=== PATIENT | female | born 1955 | race Caucasian/White ===

== ENCOUNTER → 2019-04-09 10:07 | Outpatient (CLI) | payer OTHER, SELFPAY ==
--- NOTE | 2019-04-09 | DI.MG.S_ITS ---
BILATERAL DIGITAL SCREENING MAMMOGRAM 3D/2D WITH CAD: 04/09/2019 CLINICAL: Routine screening. Comparison is made to exams dated: 08/27/2013 mammogram - [facility], 04/20/2009 mammogram, and 04/09/2009 mammogram - [facility]. There are scattered fibroglandular elements in both breasts. Current study was also evaluated with a Computer Aided Detection (CAD) system. No significant masses, calcifications, or other findings are seen in either breast. There has been no significant interval change. IMPRESSION: NEGATIVE There is no mammographic evidence of malignancy. A 1 year screening mammogram is recommended. This exam was interpreted at Station ID: [id number]. NOTE: For mammograms, a report in lay terms will be sent to the patient. Approximately 15% of breast malignancies will not be visualized mammographically. In the management of a palpable breast mass, a negative mammogram must not discourage biopsy of a clinically suspicious lesion. Electronically Signed By: Mary alvarez/taj:04/09/2019 10:59:45 copy to: JAVIER AGUERO letter sent: Normal Exam ACR BI-RADS Category 1: Negative [id number]
== END ==
PROVIDERS: PCP Registered Nurse; Visit Provider Nurse Practitioner Women's Health
DX: Z12.31 Encounter for screening mammogram for malignant neoplasm of breast (principal); Z13.820 Encounter for screening for osteoporosis; M85.88 Other specified disorders of bone density and structure, other site; Z78.0 Asymptomatic menopausal state
CPT/HCPCS: 77063; 77067; 77080

== ENCOUNTER 2019-05-03 11:13 | Outpatient (RCR) | payer OTHER, SELFPAY ==
--- NOTE | 2019-05-03 17:35 | PT.OIE ---
Current Diagnoses Muscle weakness (generalized) (05/03/19) Female genital prolapse, unspecified (05/03/19) Other reduced mobility (05/03/19) Provider Visit Care Team Role Provider Type JULIO Chen Primary Care Provider Non-Staff Specialty: Medical Address: [address] [place] [address], [id number] Email: JULIO Burleson Attending Provider Non-Staff Specialty: Medical Address: [address] [place] [address], [id number] Email: Physical Therapy Initial Evaluation PT-OP-A Visit Information Start: 04/17/19 16:26 Freq: Status: Active Protocol: Document 05/03/19 11:24 LRN (Rec: 05/03/19 12:24 LRN [id number]) Out-Patient Physical Therapy Visit Information Visit Information Visit Type Initial Evaluation Visit Start Time 11:24 Visit Stop Time 12:23 Total Visit Minutes 59 Visit Number 1 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 Bowel leakage with urgency. History of Current Condition Bulge of bladder with frequent urination. Don't have urgency to go. Thinks she has leakage with walking and biking. Drying up so sex is painful. Don't think leaks with sex. Has had PT to tighten up 6-7 yrs ago and got better, but now gotten worse. Had bulging discs in the back,got better but the leg muscles remained tight in gluteals, and TFL. She had extreme sensitivity in IT Band and Gluteals. TrP release DOESN'T WORK for her because it causes more pain. Prior Treatments and Tests Back injury 3 yrs ago with a disc bulge on both sides in lumbar spine (~L5-S1). 8-9 yrs ago had PT for pelvic floor to improve sensitivity to sex and improve Kegel contraction correctly, in [place]. Currently on cream for dry tissues. Fixed abdominal hernia. Developmental History Developmental History Urinary leakage with activity, not sure if she is sweating or leaking. Treatment Goals Patient/Caregiver Goals Run a mile. Prior Functional Status Baseline Function- ADL's Independent Baseline Function- Mobility Independent Current Functional Impairments (Reported) Functional Limitations- Mobility/Gait Can't run. Stiff and can't move hips, locked up. PT-OP-C Subjective Start: 04/17/19 16:26 Freq: Status: Active Protocol: Document 05/03/19 11:24 LRN (Rec: 05/07/19 17:27 LRN [id number]) Patient Questionnaires Pelvic Pain and Urgency/Frequency Patient Symptom Scale Pelvic Pain Score 13 PT-OP-I Pelvic Floor Start: 04/17/19 16:26 Freq: Status: Active Protocol: Document 05/03/19 11:24 LRN (Rec: 05/07/19 17:26 LRN [id number]) Pelvic Floor Assessment Urine Pelvic Floor Surgery Yes Urinary Symptoms Prolapse Falling Out Feeling/Heavy Other Urinary Symptoms Feeling of falling out with coughing Vaginal Dryness Leakage Size Small Leakage Cause Exercise Urge Nocturia 0 Bowel Bowel Surgery No Bowel Symptoms Fecal Leakage Other Bowel Symptoms Unable to control flatulence. Pelvic Clock Pelvic Clock 6-9 Atrophy Pelvic Clock 9-12 Atrophy Prolapse Cystocele Grade 2 Rectocele Grade 2 Prolapse Comments Uterus dropped Perineal Descent Resting Present Bearing Present Contraction Ability Manual Muscle Testing Left 2 Manual Muscle Testing Right 0 Manual Muscle Testing Anterior 0 Manual Muscle Testing Posterior 2 Muscle Endurance (Seconds) 2 Number of Quick Contractions In 10 5 Seconds Comments Pelvic Floor Comments PF contraction is sluggish PT-OP-J Posture/Palpation/Skin Start: 04/17/19 16:26 Freq: Status: Active Protocol: Document 05/03/19 11:24 LRN (Rec: 05/07/19 17:26 LRN [id number]) Posture Evaluation Comments Posture Comments Standing: R SIJ is deep compared to the L, Bunions with toes adducted, otherwise pt posture is good, no obvious postural deviations. Palpation Assessment Location R SIJ Palpation Location R SIJ and Gluteals Palpation Findings Tenderness PT-OP-K Range of Motion Start: 04/17/19 16:26 Freq: Status: Active Protocol: Document 05/03/19 11:24 LRN (Rec: 05/07/19 17:26 LRN [id number]) Lumbar Spine Range of Motion Lumbar Spine Active Degrees Testing Position Standing Flexion 98 Extension 12 Lateral Flexion Left 5 Lateral Flexion Right 8 Hip Goniometric Range of Motion Hip Right Passive Testing Position Supine Internal Rotation 30 External Rotation 55 Left Passive Testing Position Supine Internal Rotation 30 External Rotation 55 PT-OP-M Strength Start: 04/17/19 16:26 Freq: Status: Active Protocol: Document 05/03/19 11:24 LRN (Rec: 05/07/19 17:26 LRN [id number]) Hip Strength Hip Manual Muscle Testing Right Flexion (L2) 3 Fair Extension (S1) 3 Fair Abduction 5 Normal Adduction 3 Fair External Rotation 5 Normal Internal Rotation 3 Fair Left Flexion (L2) 3 Fair Extension (S1) 3 Fair Abduction 5 Normal Adduction 3 Fair External Rotation 5 Normal Internal Rotation 3 Fair PT-OP-Q Treatments Start: 04/17/19 16:26 Freq: Status: Active Protocol: Document 05/03/19 11:24 LRN (Rec: 05/07/19 17:26 LRN [id number]) Self-Care/Home Management Treatment Education Patient Education Home Exercise Program Other Education Educated pt in completion of Bladder Diary for next 7 days. Discussed Anatomy of Pelvic Floor. Activities Self-Care/Home Management Activities Issued & reviewed ex handout for Kegel ex's: Quick Flicks and Long Holds. PT-OP-T Assessment and Plan Start: 04/17/19 16:26 Freq: Status: Active Protocol: Document 05/03/19 11:24 LRN (Rec: 05/07/19 17:26 LRN [id number]) Physical Therapy Assessment Rehab Potential Rehabilitation Potential Good Evaluation Complexity Number of Personal Factors/Comorbidities 1-2 Number of Body Systems Impaired 3 Clinical Presentation at Evaluation Evolving Impairments Impairments ROM Strength Other Impairments Urinary and Fecal leakage with activity. Goals Three Impairment Pt not able to run 1 mile due to feeling of falling out. Steel Loader Goal (LTG) Pt will be educated in proper breathing techniques to minimize bladder prolapse, and will be able to run a short distance with controlling the feeling of falling out. LTG Duration 07/30/19 Two Impairment PF weakness causing urinary leakage Short Term Goal (STG) Pt will be educated in proper Kegel contraction and urge deference technique. STG Duration 06/25/19 Steel Loader Goal (LTG) Pt will improve PF strength to at least 3/5 of the Pelvic Floor Clock LTG Duration 07/30/19 One Impairment Lacks appropriate self care HEP Steel Loader Goal (LTG) Pt will be independent with a self care HEP LTG Duration 07/30/19 Assessment Summary Assessment Pt presents with grade 2 cystocele and rectocele and palpable uterine drop due to PF weakness, decreased hip and core stability. The pt's history of back pain probably hinders her ability to maintain continence due to back and R hip pain. The pt will benefit from skilled physical therapy to improve pelvic floor health and improve her level of both urinary and fecal continence. Physical Therapy Plan Frequency and Duration Frequency of Treatment 1x/Week Plan of Care Start Date 05/03/19 Plan of Care End Date 07/30/19 Therapeutic Interventions Therapeutic Interventions Home Exercise Program Manual Therapy Neuromuscular Re-education Patient/Caregiver Education Self-Care/Home Management Soft Tissue Mobilization Therapeutic Exercises Modalities Electric Stimulation Other Therapeutic Interventions EMG Biofeedback with vaginal sensor. Next Visit Focus/Plan Next Note Type Treatment Note Next Visit Plan Review Bladder Diary for daily training recommendations, assess PF strength per EMG Biofeedback, initiate deep breathing exercise and discuss deep breathing with exercise, start Roll in/out strengthening program and core stabilization. Check hip mobility and issue HEP for areas of tightness.
--- NOTE | 2019-05-03 17:35 | PT.OPPOC ---
Current Diagnoses Muscle weakness (generalized) (05/03/19) Female genital prolapse, unspecified (05/03/19) Other reduced mobility (05/03/19) Provider Visit Care Team Role Provider Type JULIO Chen Primary Care Provider Non-Staff Specialty: Medical Address: [address] [place] [address], [address] Email: JULIO Burleson Attending Provider Non-Staff Specialty: Medical Address: [address] [place] [address], [address] Email: Plan Of Care PT-OP-T Assessment and Plan Start: 04/17/19 16:26 Freq: Status: Active Protocol: Document 05/03/19 11:24 LRN (Rec: 05/07/19 17:26 LRN [id number]) Physical Therapy Assessment Rehab Potential Rehabilitation Potential Good Evaluation Complexity Number of Personal Factors/Comorbidities 1-2 Number of Body Systems Impaired 3 Clinical Presentation at Evaluation Evolving Impairments Impairments ROM Strength Other Impairments Urinary and Fecal leakage with activity. Goals Three Impairment Pt not able to run 1 mile due to feeling of falling out. Intermediate Goal (LTG) Pt will be educated in proper breathing techniques to minimize bladder prolapse, and will be able to run a short distance with controlling the feeling of falling out. LTG Duration 07/30/19 Two Impairment PF weakness causing urinary leakage Short Term Goal (STG) Pt will be educated in proper Kegel contraction and urge deference technique. STG Duration 06/25/19 Produce Laborer Goal (LTG) Pt will improve PF strength to at least 3/5 of the Pelvic Floor Clock LTG Duration 07/30/19 One Impairment Lacks appropriate self care HEP Produce Laborer Goal (LTG) Pt will be independent with a self care HEP LTG Duration 07/30/19 Assessment Summary Assessment Pt presents with grade 2 cystocele and rectocele and palpable uterine drop due to PF weakness, decreased hip and core stability. The pt's history of back pain probably hinders her ability to maintain continence due to back and R hip pain. The pt will benefit from skilled physical therapy to improve pelvic floor health and improve her level of both urinary and fecal continence. Physical Therapy Plan Frequency and Duration Frequency of Treatment 1x/Week Plan of Care Start Date 05/03/19 Plan of Care End Date 07/30/19 Therapeutic Interventions Therapeutic Interventions Home Exercise Program Manual Therapy Neuromuscular Re-education Patient/Caregiver Education Self-Care/Home Management Soft Tissue Mobilization Therapeutic Exercises Modalities Electric Stimulation Other Therapeutic Interventions EMG Biofeedback with vaginal sensor. Next Visit Focus/Plan Next Note Type Treatment Note Next Visit Plan Review Bladder Diary for daily training recommendations, assess PF strength per EMG Biofeedback, initiate deep breathing exercise and discuss deep breathing with exercise, start Roll in/out strengthening program and core stabilization. Check hip mobility and issue HEP for areas of tightness. Plan of Care Dates Plan of Care Start Date 05/03/19 Plan of Care End Date 07/30/19 Please Sign and Return: I have reviewed this Plan of Care and certify that the skilled therapy services above are required to meet the patient?s needs. Physician Signature Date Printed Name and Credentials Clinical Instructor Signature Printed Name and Credentials
--- NOTE | 2019-06-25 11:00 | PT-OP ANOTE ---
Message received that via voicemail cancelled today's appt and all future appts.
--- NOTE | 2019-06-25 11:05 | PT.OPDS ---
Current Diagnoses Muscle weakness (generalized) (05/03/19) Female genital prolapse, unspecified (05/03/19) Other reduced mobility (05/03/19) Visit Care Team Role Provider Type JULIO Chen Primary Care Provider Non-Staff Specialty: Medical Address: [address] [place] [address], [phone] Email: JULIO Burleson Attending Provider Non-Staff Specialty: Medical Address: [address] [place] [address], [id number] Email: Visit Number Visit Number 1 Discharge Summary PT-OP-B Current Condition Start: 04/17/19 16:26 Freq: Status: Active Protocol: Document 05/03/19 11:24 LRN (Rec: 05/03/19 12:24 LRN [id number]) Current Condition History of Current Condition Onset Date 2 ys ago Current Complaints Urinary leakage. Bowel leakage with urgency. History of Current Condition Bulge of bladder with frequent urination. Don't have urgency to go. Thinks she has leakage with walking and biking. Drying up so sex is painful. Don't think leaks with sex. Has had PT to tighten up 6-7 yrs ago and got better, but now gotten worse. Had bulging discs in the back,got better but the leg muscles remained tight in gluteals, and TFL. She had extreme sensitivity in IT Band and Gluteals. TrP release DOESN'T WORK for her because it causes more pain. Prior Treatments and Tests Back injury 3 yrs ago with a disc bulge on both sides in lumbar spine (~L5-S1). 8-9 yrs ago had PT for pelvic floor to improve sensitivity to sex and improve Kegel contraction correctly, in [place]. Currently on cream for dry tissues. Fixed abdominal hernia. Developmental History Developmental History Urinary leakage with activity, not sure if she is sweating or leaking. Treatment Goals Patient/Caregiver Goals Run a mile. Prior Functional Status Baseline Function- ADL's Independent Baseline Function- Mobility Independent Current Functional Impairments (Reported) Functional Limitations- Mobility/Gait Can't run. Stiff and can't move hips, locked up. PT-OP-T Assessment and Plan Start: 04/17/19 16:26 Freq: Status: Active Protocol: Document 06/25/19 11:02 LRN (Rec: 06/25/19 11:05 LRN [id number]) Physical Therapy Assessment Goals Three Impairment Pt not able to run 1 mile due to feeling of falling out. Cda Teacher Goal (LTG) Pt will be educated in proper breathing techniques to minimize bladder prolapse, and will be able to run a short distance with controlling the feeling of falling out. LTG Duration 07/30/19 Two Impairment PF weakness causing urinary leakage Short Term Goal (STG) Pt will be educated in proper Kegel contraction and urge deference technique. STG Duration 06/25/19 Skilled Nursing Goal (LTG) Pt will improve PF strength to at least 3/5 of the Pelvic Floor Clock LTG Duration 07/30/19 One Impairment Lacks appropriate self care HEP Skilled Nursing Goal (LTG) Pt will be independent with a self care HEP LTG Duration 07/30/19 Assessment Summary Assessment Pt was seen only for an initial evalation on 05/03/19. Voicemail received cancelling all appointments. No further therapy planned. Goals not met due to lack of attendance. Physical Therapy Plan Frequency and Duration Plan of Care Start Date 05/03/19 Discharge Physical Therapy Discharge Reasons Patient Request Discharge Comments Pt left voicemail cancelling all appointments. Pt was only seen for an initial evaluation; therefore goals not met.
== END 2019-07-12 12:09 | disposition home or self-care (01) ==
LOC: PHYS 11:13
PROVIDERS: PCP Registered Nurse; Visit Provider Nurse Practitioner Women's Health
DX: N81.9 Female genital prolapse, unspecified (principal); M62.81 Muscle weakness (generalized); Z74.09 Other reduced mobility
CPT/HCPCS: 97162; 97535

== ENCOUNTER → 2023-02-24 14:50 | Outpatient (CLI) | payer OTHER, SELFPAY ==
--- NOTE | 2023-02-24 | DI.RAD.S_ITS ---
Bone Density Report Name: JOY LANDRY Age: 67 Sex: Female Ethnicity: White Date of : 1955 Indication: osteopenia; parental hip fracture; Referring Provider: LUIS E RODRIGUEZ Study: Bone densitometry was performed. Exam Date: February 24, 2023 Accession number: [id number] Bone Density: Region BMD T-score Z-score Classification AP Spine(L1-L4) 0.833 -1.9 -0.1 Osteopenia Femoral Neck (Left) 0.718 -1.2 0.4 Osteopenia Total Hip (Left) 0.872 -0.6 0.7 Normal Femoral Neck (Right) 0.762 -0.8 0.8 Normal Total Hip (Right) 0.891 -0.4 0.8 Normal Total Hip Mean 0.881 -0.5 0.8 Normal World Health Organization criteria for BMD impression classify patients as: Normal (T-score at or above -1.0), Osteopenia (T-score between -1.0 and -2.5), or Osteoporosis (T-score at or below -2.5). 10-year Fracture Risk(1): Major Osteoporotic Fracture 16% Hip Fracture 0.8% Reported Risk Factors: [place] (), Neck BMD=0.718, BMI=28.2, parental fracture (1) FRAX(R) Version 3.08. Fracture probability calculated for an untreated patient. Fracture probability may be lower if the patient has received treatment. Previous Exams: -- Region Exam Age BMD T-score BMD Change BMD Change Date g/cm2 vs Baseline vs Previous -- AP Spine (L1-L4) 02/24/2023 67 0.833 -1.9 -0.081 (-8.8%)# -0.081 (-8.8%)# 04/09/2019 63 0.914 -1.2 Total Hip(Left) 02/24/2023 67 0.872 -0.6 -0.013 (-1.4%)# -0.013 (-1.4%)# 04/09/2019 63 0.884 -0.5 Total Hip(Right) 02/24/2023 67 0.891 -0.4 0.012 (1.3%)# 0.012 (1.3%)# 04/09/2019 63 0.879 -0.5 -- *Denotes significance at 95% confidence level, LSC for AP Spine = 0.022 g/cm2, LSC for Total Hip = 0.027 g/cm2 # Denotes dissimilar scan types or analysis methods Impression: The patient has low bone mass, based on the Total Spine T-score. The patient has an estimated ten-year risk of hip fracture of 0.8% and an estimated ten-year risk of major fracture of 16%, based on the WHO FRAX algorithm. The patient has risk factors, including: parental hip fracture. No significant bone loss was observed. Discussion: BONE DENSITY IS LOW AT ONE OR MORE SKELETAL SITES. This patient's lowest T-score is low at one or more skeletal sites. It meets the World Health Organization's (WHO) criteria for low bone mass (T-score between -1.0 and -2.5). The patient's 10-year risk of fracture as calculated by FRAX is less than the threshold where pharmacological therapy is recommended by the National Osteoporosis Foundation (NOF). However, all treatment decisions require clinical judgment and consideration of individual patient factors, including patient preferences, comorbidities, previous drug use, risk factors not captured in the FRAX model (e.g., frailty, falls, vitamin D deficiency, increased bone turnover, interval significant decline in bone density) and possible under or overestimation of fracture risk by FRAX. The patient should follow a healthful lifestyle (good nutrition with adequate calcium and vitamin D, and appropriate weight-bearing exercise). Follow-Up: Consider repeating this study in 2 to 3 years to reassess this patient's status, or sooner if there is some new clinical indication. Reported by: LUIS ALBERTO MORSE M.D. on 02/28/2023 4:20:00 PM.
--- NOTE | 2023-02-24 | DI.MG.S_ITS ---
BILATERAL DIGITAL SCREENING MAMMOGRAM 3D/2D WITH CAD: 02/24/2023 CLINICAL: Routine screening. Comparison is made to exams dated: 04/09/2019 mammogram, 08/27/2013 mammogram - [facility], and 04/20/2009 mammogram - [facility]. There are scattered areas of fibroglandular density in both breasts (category b / 25%-50% glandular tissue). Current study was also evaluated with a Computer Aided Detection (CAD) system. There is a new 0.3 cm oval equal density focal asymmetry in the right breast at 7 o'clock middle depth. No other significant masses, calcifications, or other findings are seen in either breast. IMPRESSION: INCOMPLETE: NEEDS ADDITIONAL IMAGING EVALUATION The new 0.3 cm oval equal density focal asymmetry in the right breast resembles a cyst or a lymph node and is indeterminate. Additional views with possible ultrasound are recommended. Based on the Tyrer Cuzick model (a risk assessment model) the patient's lifetime risk is 5.8% and her 10 year risk is 2.9%. According to the ACR, ACS, and NCCN guidelines, an annual breast MRI exam along with mammogram is recommended if the patient's lifetime risk is 20% or greater. This exam was interpreted at Station ID: [id number]. NOTE: For mammograms, a report in lay terms will be sent to the patient. Approximately 15% of breast malignancies will not be visualized mammographically. In the management of a palpable breast mass, a negative mammogram must not discourage biopsy of a clinically suspicious lesion. Electronically Signed By: Austin Cabrera M.D. aty/:02/24/2023 17:41:05 copy to: JAVIER AGUERO letter sent: Additional Imaging Needed ACR BI-RADS Category 0: Incomplete [id number]
== END ==
PROVIDERS: PCP Family Medicine; Referring Provider Family Medicine; Visit Provider Family Medicine
DX: Z12.31 Encounter for screening mammogram for malignant neoplasm of breast (principal); Z78.0 Asymptomatic menopausal state; M85.88 Other specified disorders of bone density and structure, other site
CPT/HCPCS: 77063; 77067; 77080

== ENCOUNTER → 2023-04-11 11:59 | Outpatient (CLI) | payer OTHER, SELFPAY ==
--- NOTE | 2023-04-11 | DI.US.S_ITS ---
ULTRASOUND OF RIGHT BREAST: 04/11/2023 CLINICAL: Patient returns today to evaluate an asymmetry in the right breast. Comparison is made to exams dated: 04/11/2023 mammogram, 02/24/2023 mammogram, 04/09/2019 mammogram, 08/27/2013 mammogram - [facility], and 04/20/2009 mammogram - [facility]. Color flow ultrasound of the right breast was performed on the areas of interest. Jonas scale images of the real-time examination were reviewed. There is an irregular cyst in the right breast at 7 o'clock middle depth. This irregular cyst is hypoechoic with a well-defined boundary and posterior acoustic enhancement. This correlates with mammography findings. Color flow imaging demonstrates that there is no vascularity present. IMPRESSION: BENIGN There is no sonographic evidence of malignancy. The irregular cyst in the right breast is benign. A 1 year screening mammogram is recommended. This exam was interpreted at Station ID: [id number]. Electronically Signed By: Mary Carey M.D. lk/:04/11/2023 12:59:08 copy to: JAVIER AGUERO letter sent: Normal Exam Ultrasound BI-RADS: 2 Benign
--- NOTE | 2023-04-11 | DI.MG.S_ITS ---
UNILATERAL RIGHT DIGITAL DIAGNOSTIC MAMMOGRAM 3D/2D WITH ADDITIONAL VIEWS: 04/11/2023 CLINICAL: Additional evaluation requested from prior study. Comparison is made to exams dated: 02/24/2023 mammogram, 04/09/2019 mammogram, and 08/27/2013 mammogram - [facility]. There are scattered areas of fibroglandular density in the right breast (category b / 25%-50% glandular tissue). The focal asymmetry in the right breast at 7 o'clock middle depth is less prominent than pn screening views. No other significant masses or calcifications are seen in the breast. IMPRESSION: INCOMPLETE: NEEDS ADDITIONAL IMAGING EVALUATION The 0.3 cm oval equal density focal asymmetry in the right breast resembles a cyst or a lymph node and is indeterminate. A targeted ultrasound of the right breast is recommended and will be performed immediately following this exam. Based on the Tyrer Cuzick model (a risk assessment model) the patient's lifetime risk is 5.8% and her 10 year risk is 2.9%. According to the ACR, ACS, and NCCN guidelines, an annual breast MRI exam along with mammogram is recommended if the patient's lifetime risk is 20% or greater. This exam was interpreted at Station ID: [id number]. NOTE: For mammograms, a report in lay terms will be sent to the patient. Approximately 15% of breast malignancies will not be visualized mammographically. In the management of a palpable breast mass, a negative mammogram must not discourage biopsy of a clinically suspicious lesion. Electronically Signed By: Mary Carey M.D. lk/:04/11/2023 12:34:48 copy to: JAVIER FARRIS BI-RADS Category 0: Incomplete [id number]
== END ==
PROVIDERS: PCP Family Medicine; Referring Provider Family Medicine; Visit Provider Family Medicine
DX: R92.8 Other abnormal and inconclusive findings on diagnostic imaging of breast (principal); N60.01 Solitary cyst of right breast
CPT/HCPCS: 76642; 77065; G0279